=== PATIENT | female | born 1940 | race Caucasian/White ===

== ENCOUNTER 2021-03-20 10:28 | Emergency (ER) | payer MEDICARE, SELFPAY ==
[2021-03-20] VITALS (16 sets, daily range): BP systolic 139–170; BP diastolic 73–110; PULSE 61–75; RESP 12–18; TEMP 36.8; O2SAT 98–100
--- NOTE | ~2021-03-20 | XR_ITS ---
EXAMINATION: XR chest 2V DATE: 03/20/2021 11:05 INDICATION: Palpitations. Dizziness. TECHNIQUE: PA and lateral views of the chest were obtained. COMPARISON: None FINDINGS: The lungs are clear with no focal airspace opacities, pulmonary edema, pleural effusion or pneumothor ax. The cardiomediastinal silhouette is normal. Mild upper lumbar levocurvature with moderate spondyl osis. Chronic mild T12 and L2 compression fractures. IMPRESSION: 1. No acute cardiopulmonary disease. Reviewed, dictated and finalized at location A.
--- NOTE | 2021-03-20 10:41 | ECG_ITS ---
Measurements Intervals [place] Rate: 63 P: 67 MT: 157 QRS: 27 QRSD: 90 T: 46 QT: 382 QTc: 394 Interpretive Statements SINUS RHYTHM EARLY PRECORDIAL R/S TRANSITION BASELINE ARTIFACT- II, III BORDERLINE ECG Electronically Signed On 03-20-2021 17:12:52 CDT by Ho Chiang D.O.
[2021-03-20 11:21] LABS: Basophils Absolute Auto 0.1 K/mm3 (0.0-0.1); Basophils Percent Auto 1.1 % (0.2-1.2); Eosinophils Absolute Auto 0.2 K/mm3 (0-0.3); Eosinophils Percent Auto 2.8 % (0-4.4); Hemoglobin 14.4 g/dL (12.0-15.0); Immature Granulocyte Absolute 0.01 K/mm3 (0.00-0.031); Immature Granulocyte Percent A 0.2 % (0-0.5); Lymphocytes Absolute Auto 1.07 K/mm3 (0.9-3.2); Lymphocytes Percent Auto 19.7 % (18.3-44.2); Mean Corpuscular HGB Conc 33.5 g/dl (32-36); Mean Corpuscular Hemoglobin 30.4 pg (26-34); Mean Corpuscular Volume 90.7 fl (80-100); Mean Platelet Volume 10.8 fl (7.4-10.4); Monocytes Absolute Auto 0.5 K/mm3 (0.1-0.6); Monocytes Percent Auto 9.4 % (2.6-8.5); Neutrophils Absolute Auto 3.6 K/mm3 (1.3-6.7); Neutrophils Percent Auto 66.8 % (45.5-73.1); Platelet Count Result 178 k/mm3 (150-375); Red Blood Count 4.74 M/mm3 (4.2-5.4); Red Cell Distribution Width 12.5 % (11.5-14.5); White Blood Count 5.4 K/mm3 (4.5-10.0)
[2021-03-20 11:29] LABS: INR 0.9; Prothrombin Time 12.1 Seconds (11.1-14.7)
[2021-03-20 11:30] LABS: Partial Thromboplastin Time 20.4 SECONDS (22.3-36.8)
[2021-03-20 11:32] LABS: Anion Gap 5 mmol/L (8-16); Blood Urea Nitrogen 23 mg/dL (7-17); Calcium 9.9 mg/dL (8.4-10.2); Carbon Dioxide 27 mmol/L (22-30); Chloride 106 mmol/L (98-107); Estimated CRCL calculation 38 ml/min; Estimated Glomerular Filt Rate 48; Glucose 114 mg/dL (65-110); Potassium 4.3 mmol/L (3.4-5.0); Sodium 138 mmol/L (137-145)
[2021-03-20 11:44] LABS: Troponin I < 0.012 ng/mL (0.000-0.034)
[2021-03-20 11:50] LABS: Troponin I < 0.012 ng/mL (0.000-0.034)
--- NOTE | 2021-03-20 12:59 | ED.DIZZY ---
HPI - Dizziness General Chief Complaint: Dizziness Stated Complaint: dizzy Time Seen by Provider: 03/20/21 11:58 Source: patient and RN notes reviewed Mode of arrival: ambulatory Limitations: no limitations History of Present Illness HPI Narrative: This is 80 year old female with history of hypertension who presents for evaluation of palpitations. She was sitting at her desk when she felt heart jumping for brief seconds. She had associated dizziness with this episode. She denies having chest pain, nausea, sob, diaphoresis with this episode. She is asymptomatic now. She denies any complaint at this time and she was feel well previous to this episode. She also noticed her blood pressure has been higher than normal. Related Data Home Medications Medication Instructions Recorded Confirmed carvedilol 03/20/21 cholecalciferol (vitamin D3) 03/20/21 [Vitamin D3] coQ10 (ubiquinol) 100 mg PO DAILY 03/20/21 hydrochlorothiazide 12.5 mg DAILY 03/20/21 omega-3 fatty acids [[place] 3] 1,000 mg PO DAILY 03/20/21 03/20/21 pravastatin 03/20/21 quinapril mg 03/20/21 Allergies Allergy/AdvReac Type Severity Reaction Status Date / Time No Known Allergies Allergy Verified 03/20/21 11:18 Review of Systems Review of Systems: All systems reviewed & are unremarkable except as noted in HPI and below [facility] Past Medical History Medical History (Updated 03/20/21 @ 14:49 by Mayra Yi MD) Hypertension Exam Const: General: no acute distress and alert Orientation/consciousness: patient oriented x3 HENMT: Head: normocephalic and atraumatic Mouth: Yes Normal oral and palatal mucosa present, Yes lip normal, Yes tongue normal, Yes oropharynx normal and Yes moist mucous membranes Eyes: EOM: EOMs intact bilaterally Resp: Effort & Inspection: normal respiratory effort and no retractions Auscultation: clear to auscultation bilaterally Cardio: Rate: regular rate Rhythm: regular rhythm Heart sounds: no murmurs GI: GI Palp: Yes Soft to palpation, No Tenderness to palpation present (GI) and No Guarding due to palpation present (GI) Auscultation: normal bowel sounds Neuro: General: patient oriented x3, moves all extremities, no focal motor deficits and CN's II-XI intact bilaterally Cranial nerves: Yes Nystagmus not present Speech: normal speech Other: normal finger to nose Psych: Mental Status: mental status grossly normal Affect: normal affect Course Reevaluation(s) Reevaluation #1: PAtient has been asymptomatic in ER. I discussed she will need to follow up with PCP for evaluation and possible cardiology referral , holter monitor. Date: 03/20/21 Time: 14:48 Vital Signs Vital signs: Vital Signs Temperature 98.3 F 03/20/21 10:39 Pulse Rate 66 03/20/21 10:39 Respiratory Rate 16 03/20/21 10:39 Blood Pressure 153/88 H 03/20/21 10:39 Pulse Oximetry 100 03/20/21 10:39 Temperature 98.3 F 03/20/21 10:39 Pulse Rate 67 03/20/21 15:03 Respiratory Rate 18 03/20/21 15:03 Blood Pressure 144/76 H 03/20/21 15:03 Pulse Oximetry 100 03/20/21 15:03 MDM - Dizziness Lab Data Attestation: I reviewed the patient's lab results. Result diagrams: 03/20/21 10:52 03/20/21 10:52 Labs: Lab Results 03/20/21 03/20/21 03/20/21 Range/Units 10:52 10:52 10:52 WBC 5.4 (4.5-10.0) K/mm3 RBC 4.74 (4.2-5.4) M/mm3 Hgb 14.4 (12.0-15.0) g/dL Hct 43.0 (37.0-47.0) % MCV 90.7 (80-100) fl MCH 30.4 (26-34) pg MCHC 33.5 (32-36) g/dl RDW 12.5 (11.5-14.5) % Plt Count 178 (150-375) k/mm3 MPV 10.8 H (7.4-10.4) fl Immature Gran % (Auto) 0.2 (0-0.5) % Neut % (Auto) 66.8 (45.5-73.1) % Lymph % (Auto) 19.7 (18.3-44.2) % [place] % (Auto) 9.4 H (2.6-8.5) % Eos % (Auto) 2.8 (0-4.4) % Baso % (Auto) 1.1 (0.2-1.2) % Lymph # (Auto) 1.07 (0.9-3.2) K/mm3 [place] # (Auto) 0.5 (0.1-0.6) K/mm3 Eos # (A
[2021-03-20 13:06] LABS: Magnesium 1.9 mg/dL (1.6-2.3)
[2021-03-20 14:31] LABS: Troponin I < 0.012 ng/mL (0.000-0.034)
== END 2021-03-20 15:05 | disposition home or self-care (01) ==
PROVIDERS: Emergency Medicine; Emergency Provider General Practice; PCP Internal Medicine
DX: R00.2 Palpitations (principal); I10 Essential (primary) hypertension
CPT/HCPCS: 36415; 71046; 80048; 83735; 84484; 85025; 85610; 85730; 93005; 99284

== ENCOUNTER 2021-10-17 09:37 | Outpatient (CLI) | payer MEDICARE, SELFPAY ==
--- NOTE | ~2021-10-17 | CT_ITS ---
EXAMINATION: CT abdomen pelvis wo con DATE: 10/17/2021 10:09 INDICATION: Left kidney stone. TECHNIQUE: Computed tomography (CT) of the abdomen and pelvis was performed without intravenous contr ast. Automated exposure control and iterative reconstruction technique were employed. The dose-length product was 217.87 mGy-cm. COMPARISON: CT abdomen and pelvis 01/02/2016 FINDINGS: The visualized portions of the lung bases demonstrate minimal atelectasis. There is a small right posterior diaphragmatic hernia containing fat. No pleural effusion. The heart size is normal. No pericardial effusion. The liver, gallbladder, spleen, pancreas, and adrenal glands are normal. The re is cortical thinning of the kidneys. There are cysts including peripelvic cysts in the kidneys elvie suring up to 2.6 cm on the left. There is a 4 mm stone in left kidney. There is diverticulosis of the colon without evidence of diverticulitis. The appendix is normal. There are no pathologically enlarg ed lymph nodes. There is no free intraperitoneal fluid. There is lumbar levoscoliosis and severe spon dylosis. IMPRESSION: 1. 4 mm nonobstructing left kidney stone. Reviewed, dictated and finalized at location A.
--- NOTE | ~2021-10-17 | XR_ITS ---
EXAMINATION: XR abdomen/kub 1V DATE: 10/17/2021 10:04 INDICATION: Left kidney stone. TECHNIQUE: A supine view of the abdomen on 2 radiographs was obtained. COMPARISON: CT abdomen and pelvis 01/02/2016 FINDINGS: There are no dilated loops of bowel. There is no visible urolithiasis. There are phlebolith s in the pelvis. There is a calcification in the pelvis correlating with old fat necrosis by CT. IMPRESSION: 1. No visible urolithiasis. Reviewed, dictated and finalized at location A. IMPRESSION: 1. No visible urolithiasis.
== END 2021-10-17 09:38 | disposition home or self-care (01) ==
PROVIDERS: PCP Internal Medicine; Visit Provider Urology
DX: N20.0 Calculus of kidney (principal)
CPT/HCPCS: 74018; 74176

== ENCOUNTER 2022-08-16 09:58 | Outpatient (CLI) | payer MEDICARE, SELFPAY ==
--- NOTE | ~2022-08-16 | XR_ITS ---
Supine views of the abdomen Clinical history: Left renal stone COMPARISON: 10/17/2021 Findings: Bowel gas pattern is nonspecific. No evidence for obstruction or free air.. Probable calcif ied pelvic phleboliths. No abnormal mass lesion or calcification is seen. Levoscoliosis of the lumbar spine with degenerative changes similar to prior exam. Impression: No definite left renal stone seen. Stable presumed calcified pelvic phleboliths. Stable degenerative change of the lumbar spine. Reviewed, dictated and finalized at [facility]. TING EQUIPMENT OPERATOR Impression: No definite left renal stone seen. Stable presumed calcified pelvic phleboliths. Stable degenerative change of the lumbar spine.
== END 2022-08-16 09:59 | disposition home or self-care (01) ==
PROVIDERS: PCP Internal Medicine; Visit Provider Urology
DX: N20.0 Calculus of kidney (principal)
CPT/HCPCS: 74018

== ENCOUNTER 2023-08-20 09:50 | Outpatient (CLI) | payer MEDICARE, OTHER, SELFPAY ==
--- NOTE | ~2023-08-20 | US_ITS ---
EXAMINATION: US renal BI DATE: 08/20/2023 10:49 INDICATION: Chronic kidney disease, stage IIIa. TECHNIQUE: Multiple ultrasound grayscale images of the kidneys were obtained. COMPARISON: CT abdomen and pelvis 10/17/2021 FINDINGS: The right kidney measures 11.0 x 5.6 x 5.0 cm. The left kidney measures 10.3 x 5.0 x 5.1 cm. The kidn eys demonstrate normal parenchymal echogenicity. There are peripelvic cysts in the kidneys. There is no hydronephrosis. The bladder is normal. IMPRESSION: 1. Normal kidneys. No hydronephrosis. Reviewed, dictated and finalized at location A. ID HAND
--- NOTE | ~2023-08-20 | XR_ITS ---
EXAMINATION: XR abdomen/kub 1V INDICATION: Chronic kidney disease TECHNIQUE: Supine views of the abdomen were obtained on 2 radiographs. COMPARISON: 08/16/2022 FINDINGS: There appear to be small stones of the left kidney measuring up to 3 mm. No stones are iden tified along the expected courses of the ureters or at the level of the urinary bladder. There is lum bar levoscoliosis and severe spondylosis. IMPRESSION: 1. Probable left nephrolithiasis. Reviewed, dictated and finalized at location L. R IN SUPERVISOR
== END 2023-08-20 09:51 | disposition home or self-care (01) ==
LOC: ANHIMG 09:52
PROVIDERS: PCP Internal Medicine; Visit Provider Internal Medicine Nephrology
DX: N20.0 Calculus of kidney (principal); N18.31 Chronic kidney disease, stage 3a
CPT/HCPCS: 74018; 76775

== ENCOUNTER 2023-08-22 12:56 | Outpatient (RCR) | payer MEDICARE, OTHER, SELFPAY ==
[2023-08-22 13:05] VITALS: BMI 27.0
[2023-08-22 13:09] VITALS: BMI 27.0
== END 2023-11-11 09:41 | disposition home or self-care (01) ==
LOC: ANHDMC 12:56
PROVIDERS: PCP Internal Medicine; Visit Provider Internal Medicine Nephrology
DX: N18.31 Chronic kidney disease, stage 3a (principal); N20.0 Calculus of kidney; Z71.3 Dietary counseling and surveillance
CPT/HCPCS: 97802

== ENCOUNTER 2024-06-08 08:44 | Outpatient (CLI) | payer MEDICARE, OTHER, SELFPAY ==
--- NOTE | ~2024-06-08 | XR_ITS ---
XR abdomen/kub 1V Ordering provider: Rubio Mcintyre MD History: . PLEASE COMMENT ON WHETHER STONES ARE BIGGER . Comparison: None. FINDINGS: BOWEL: Nonobstructive bowel gas pattern. ORGANOMEGALY: None. SIGNIFICANT PATHOLOGIC CALCIFICATIONS: Left kidney stone. Faint calcification in the right kidney. Ca lcific area seen in the pelvis over the lower sacrum which may be a fecal material. OTHER: No free air is seen under the diaphragm. Levoscoliosis. Degenerative changes of the spine. IMPRESSION: NO ACUTE ABDOMINAL FINDINGS. Left kidney stone. Possible right kidney stone. Reviewed, dictated and finalized at location A. TEACHER
== END 2024-06-08 08:45 | disposition home or self-care (01) ==
PROVIDERS: PCP Internal Medicine; Visit Provider Internal Medicine Nephrology
DX: N20.0 Calculus of kidney (principal); N18.31 Chronic kidney disease, stage 3a
CPT/HCPCS: 74018

== ENCOUNTER 2025-06-25 11:50 | Outpatient (CLI) | payer MEDICARE, OTHER, SELFPAY ==
--- NOTE | ~2025-06-25 | XR_ITS ---
EXAMINATION: XR abdomen/kub 1V DATE: 06/25/2025 12:09 INDICATION: Left sided kidney stones TECHNIQUE: A supine view of the abdomen on 2 radiographs was obtained. COMPARISON: CT dated 10/17/2021 FINDINGS: Couple unchanged phlebolith is slightly to the left of midline in the central pelvis. 2-3 mm calcification projecting over the upper pole the left kidney. No dilated loops of gas-filled bowel to suggest obstruction. Lumbar levoscoliosis with severe spondylosis. IMPRESSION: 1. 2-3 mm stone projecting over the upper pole the left kidney. Reviewed, dictated and finalized at location A. 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
== END 2025-06-25 11:51 | disposition home or self-care (01) ==
LOC: MICIMG 11:52
PROVIDERS: PCP Urology; Visit Provider Urology
DX: N20.0 Calculus of kidney (principal)
CPT/HCPCS: 74018